=== PATIENT | female | born 1975 | race Caucasian/White ===

== ENCOUNTER → 2016-06-26 | Outpatient (CLI) | payer OTHER | LOC: FIMAGING 10:15 | PROVIDERS: ATTEND Advanced Practice Midwife | DX: O09.522 Supervision of elderly multigravida, second trimester (principal); O28.8 Other abnormal findings on antenatal screening of mother; Z3A.17 17 weeks gestation of pregnancy ==

== ENCOUNTER 2016-11-07 17:55 | Observation (INO) | payer OTHER ==
[2016-11-07 18:53] LABS: % IMMATURE GRANULYOCYTES 0.4 % (0.0-1.1); ABSOLUTE IMMATURE GRANULOCYTES 0.05 10^3/uL (0.00-0.10); ADD DIFF? NO; ADD MORPH? NO; ADD SCAN? NO; ATYPICAL LYMPHOCYTE FLAG 0 (0-99); FRAGMENT RBC FLAG 0 (0-99); HEMATOCRIT 44.3 % (38.0-47.0); HEMOGLOBIN 15.3 g/dL (12.6-16.3); LEFT SHIFT FLG 0 (0-99); LIPEMIA HEMOLYSIS FLAG 90 (0-99); MEAN CELL HEMOGLOBIN CONCENTR. 34.5 g/dL (32.4-36.7); MEAN CELL VOLUME 98.4 fL (81.5-99.8); MEAN PLATELET VOLUME 10.6 fL (8.7-11.7); PLATELET CLUMPS FLAG 0 (0-99); PLATELET COUNT 277 10^3/uL (150-400); RED CELL DISTRIBUTION WIDTH 13.4 % (11.5-15.2)
[2016-11-07 19:11] LABS: ALANINE AMINOTRANSFERASE 41 IU/L (9-52); ASPARTATE AMINOTRANSFERASE 26 IU/L (14-46); BILIRUBIN,TOTAL 0.3 mg/dL (0.1-1.4); BILIRUBIN-CONJUGATED 0.1 mg/dL (0.0-0.5); BILIRUBIN-UNCONJUGATED 0.2 mg/dL (0.0-1.1); CREATININE 0.6 mg/dL (0.6-1.0); GLOMERULAR FILTRATION RATE > 60; LACTATE DEHYDROGENASE 580 IU/L (313-618); URIC ACID 4.9 mg/dL (2.5-6.8)
[2016-11-07] MEDS ORDERED: ACETAMINOPHEN 325 MG TAB PO PRN (20:07)
[2016-11-07] MEDS: D5W LR 1,000 ML IV SCH (20:20)
[2016-11-07] MEDS: ZOLPIDEM TARTRATE 5 MG TAB PO PRN (23:37)
--- NOTE | 2016-11-07 23:58 | PDGENHP ---
History and Physical History and Physical: LABOR ADMISSION HISTORY AND PHYSICAL EXAM DATE OF ADMISSION: 11/07/2016 HISTORY OF PRESENT ILLNESS: 41 yo @ 36.5 weeks gestation (EDC = by 1st trimester scan) with complicated by mild preeclampsia presents with complaints of headache. She was seen earlier today by Dr. Vianca Polo. She denies vision changes, right upper quadrant pain. Prior CD for breech. MEDICAL HISTORY: non-contrib, chart not available CURRENT MEDICATIONS: PNV SURGICAL HISTORY: CD for breech P2 ALLERGIES:NKDA SOCIAL HISTORY: non-contrib FAMILY MEDICAL HISTORY: non-contrib OBSTETRICAL/GYNECOLOGIC HISTORY: see HPI REVIEW OF SYSTEMS: GENERAL: Denies generalized faintness or fatigue HENT: Denies headache, vision changes, sore throat PULM: Denies cough, shortness of breath CV: Denies palpitations, chest pain GI: Denies nausea, vomiting, diarrhea, constipation : Denies dysuria, vaginal bleeding, vaginal discharge, movement MSK: Denies significant swelling in extremities SKIN: Denies rash, or new lesion NEURO: Admits to headache PSYCH: Denies significant mood changes PHYSICAL EXAM: VITALS: initial BPs elevated 170/100, repeats 150/90 GENERAL APPEARANCE: Alert & oriented x 3 HENT: Normocephalic, atraumatic, supple HEART: RRR, no M/R/G LUNGS: CTAB, no wheezes, no rhonchi ABDOMEN: Gravid, non-distended, non-tender ASSESSMENT: Category 1 tracing, baseline 135 LABS: pending chart search ASSESSMENT: 41 yo @ 36.5 weeks with mild preeclampsia, with some concerning symptoms. PLAN: Teresa will be admitted for observation overnight. Serial BPs, PIH labs , monitoring of symptoms will be performed. Plan is for repeat CD at 37 weeks, earlier if severe preeclampsia is diagnosed.
[2016-11-08] MEDS: D5W LR 1,000 ML IV SCH (04:07)
[2016-11-08 06:45] LABS: % IMMATURE GRANULYOCYTES 0.4 % (0.0-1.1); ABSOLUTE IMMATURE GRANULOCYTES 0.04 10^3/uL (0.00-0.10); ADD DIFF? NO; ADD MORPH? NO; ADD SCAN? NO; ATYPICAL LYMPHOCYTE FLAG 10 (0-99); FRAGMENT RBC FLAG 0 (0-99); HEMOGLOBIN 13.4 g/dL (12.6-16.3); LEFT SHIFT FLG 0 (0-99); LIPEMIA HEMOLYSIS FLAG 90 (0-99); MEAN CELL HEMOGLOBIN 34.1 pg (27.9-34.1); MEAN CELL HEMOGLOBIN CONCENTR. 34.4 g/dL (32.4-36.7); MEAN CELL VOLUME 99.2 fL (81.5-99.8); MEAN PLATELET VOLUME 10.6 fL (8.7-11.7); PLATELET CLUMPS FLAG 10 (0-99); PLATELET COUNT 239 10^3/uL (150-400); RED BLOOD CELL COUNT 3.93 10^6/uL (4.18-5.33); RED CELL DISTRIBUTION WIDTH 13.3 % (11.5-15.2)
[2016-11-08 06:47] LABS: ALANINE AMINOTRANSFERASE 31 IU/L (9-52); ASPARTATE AMINOTRANSFERASE 18 IU/L (14-46); BILIRUBIN,TOTAL 0.3 mg/dL (0.1-1.4); BILIRUBIN-CONJUGATED 0.1 mg/dL (0.0-0.5); BILIRUBIN-UNCONJUGATED 0.2 mg/dL (0.0-1.1); CREATININE 0.6 mg/dL (0.6-1.0); GLOMERULAR FILTRATION RATE > 60; LACTATE DEHYDROGENASE 395 IU/L (313-618); URIC ACID 5.2 mg/dL (2.5-6.8)
--- NOTE | 2016-11-08 07:34 | SOAPPROG ---
SOAP Progress Note Assessment/Plan: Assessment: 41 yo @ 36.6 weeks gestation with c/b preeclampsia and prior delivery. Plan: 11/08/16 07:29 Continued observation in hospital Collection of 24 hour urine for protein quantification Plan for delivery by RCDarius @ 37+ weeks Subjective: Teresa reports good sleep overnight. She states that headache went away. She denies any vision changes or RUQ pain. She reports good movement and denies any contractions. She would like to eat if possible. Objective: Laboratory Results 11/08/16 06:15 11/08/16 06:15 Normotensive this AM NAD, AAOx3 Normocephalic Atraumatic CTAB RRR Abdomen soft, non-tender, gravid No pitting edema in extremities ICD10 Worksheet Patient Problems: Problems Problem Status Onset SAB (spontaneous ) Acute
[2016-11-08] MEDS: ZOLPIDEM TARTRATE 5 MG TAB PO PRN (22:30)
[2016-11-08 23:22] LABS: RANDOM URINE PROTEIN 13 mg/dL (0-11)
[2016-11-09 02:13] LABS: 24 HOUR URINE PROTEIN 803 mg/24HR (42-225); URINE VOLUME 6175 mL
[2016-11-09 07:09] LABS: % IMMATURE GRANULYOCYTES 0.4 % (0.0-1.1); ABSOLUTE IMMATURE GRANULOCYTES 0.04 10^3/uL (0.00-0.10); ADD DIFF? NO; ADD MORPH? NO; ADD SCAN? NO; ATYPICAL LYMPHOCYTE FLAG 0 (0-99); FRAGMENT RBC FLAG 0 (0-99); HEMATOCRIT 40.1 % (38.0-47.0); HEMOGLOBIN 13.6 g/dL (12.6-16.3); LEFT SHIFT FLG 0 (0-99); LIPEMIA HEMOLYSIS FLAG 90 (0-99); MEAN CELL HEMOGLOBIN 34.2 pg (27.9-34.1); MEAN CELL HEMOGLOBIN CONCENTR. 33.9 g/dL (32.4-36.7); MEAN CELL VOLUME 100.8 fL (81.5-99.8); MEAN PLATELET VOLUME 10.4 fL (8.7-11.7); PLATELET CLUMPS FLAG 0 (0-99); PLATELET COUNT 257 10^3/uL (150-400); RED BLOOD CELL COUNT 3.98 10^6/uL (4.18-5.33); RED CELL DISTRIBUTION WIDTH 13.6 % (11.5-15.2)
[2016-11-09 07:43] LABS: ALANINE AMINOTRANSFERASE 35 IU/L (9-52); ASPARTATE AMINOTRANSFERASE 20 IU/L (14-46); BILIRUBIN,TOTAL 0.4 mg/dL (0.1-1.4); BILIRUBIN-CONJUGATED 0.2 mg/dL (0.0-0.5); BILIRUBIN-UNCONJUGATED 0.2 mg/dL (0.0-1.1); CREATININE 0.7 mg/dL (0.6-1.0); GLOMERULAR FILTRATION RATE > 60; LACTATE DEHYDROGENASE 458 IU/L (313-618); URIC ACID 5.1 mg/dL (2.5-6.8)
[2016-11-09] MEDS ORDERED: FLU VACC QS 2017-18 (3YR+)/PF 0.5 ML SYR (FLUARIX QUAD) IM ONE (09:53)
--- NOTE | 2016-11-09 10:05 | SOAPPROG ---
SOAP Progress Note Assessment/Plan: Assessment: 41 yo @ 36.6 weeks gestation with c/b preeclampsia and prior delivery. Plan: 11/08/16 07:29 Continued observation in hospital Collection of 24 hour urine for protein quantification Plan for delivery by RCDarius @ 37+ weeks 11/09/16 09:58 A/P: 41 yo @ 37.0 weeks with c/b gestational hypertension/ preeclampsia and h/o prior delivery. After over 24 hours of monitoring serial BPs, PIH labs, 24 hour urine collection for protein quantification, closely monitoring symptoms, patient has remained stable and has not made significant changes or suddenly developed severe features. After discussion with patient regarding options for management moving forward, we have agreed to continue with Dr. Polo's plan of repeat delivery on the AM of November 11 (in less than 48 hours). Patient will be discharged home this morning. She has been given strict instructions and precautions regarding closely monitoring development of severe preeclamptic features at home. She has been instructed to rest, stay hydrated and use Tylenol for mild headaches that she often experiences in the afternoons. She understands to return to hospital or call clinic if she develops severe headache, RUQ pain, suddenly notes increased swelling, or elevated BPs at home. Subjective: Teresa feels good this morning. She denies complaints of headache, vision changes, right upper quadrant pain or significant changes in swelling in extremities. She reports good movement. She is in good spirits. Objective: Laboratory Results 11/09/16 06:30 11/09/16 06:30 NAD CTAB, no wheezes, crackles RRR, no murmurs Soft, non-tender abdomen, gravid, S=D Extremities: no excessive edema, normal DTRs Labs: 24 hr urine = 800; other PIH labs WNL - Pending Discharge Pending Discharge Within 24 Hours: Yes Pending Discharge Date: 11/10/16 Pending Discharge Time: 11:00 ICD10 Worksheet Patient Problems: Problems Problem Status Onset SAB (spontaneous ) Acute
--- NOTE | 2016-11-09 10:25 | PDDCSUM ---
Discharge Summary Discharge Summary: ANTEPARTUM DISCHARGE SUMMARY DATE OF ADMISSION: 11/07/2016 DATE OF DISCHARGE: 11/09/2016 ADMITTING DIAGNOSES: 1.IUP @ 36.5 week gestation 2.Gestational hypertensive disorder / Preeclampsia without severe features 3.Headache DISCHARGE DIAGNOSES: 1.IUP @ 36.5 week gestation 2.Gestational hypertensive disorder / Preeclampsia without severe features ADMITTING PHYSICIAN: Zack Huizar MD DISCHARGING PHYSICIAN: Zack Huizar MD HISTORY OF PRESENT ILLNESS/HOSPITAL COURSE: 41 yo @ presented on Thursday evening (11/07) with c/o throbbing headache. Elevated BPs noted at admission. Her care has primarily been with Dr. Vianca Polo at [facility] and she was previously diagnosed and followed for gestational hypertension/ preeclampsia and h/o prior delivery. After over 24 hours of monitoring serial BPs, PIH labs, 24 hour urine collection for protein quantification, closely monitoring symptoms, patient has remained stable and has not made significant changes or suddenly developed severe features. After discussion with patient regarding options for management moving forward, we have agreed to continue with Dr. Polo's plan of repeat delivery on the AM of November 11 (in less than 48 hours). Patient will be discharged home this morning. She has been given strict instructions and precautions regarding closely monitoring development of severe preeclamptic features at home. She has been instructed to rest, stay hydrated and use Tylenol for mild headaches that she often experiences in the afternoons. She understands to return to hospital or call clinic if she develops severe headache, RUQ pain, suddenly notes increased swelling, or elevated BPs at home. PROCEDURES PERFORMED: 1. NST q shift 2. Serial BP monitoring 3. Serial PIH labs 4. 24 hour urine collection for protein quantification. 5. Flu vaccine administered. COMPLICATIONS:None. DISCHARGE INSTRUCTIONS AND FOLLOW-UP: Discharge home. Follow-up for scheduled repeat delivery on November 11 (less than 48 hours from now) at [facility]. Precautions for severe preeclampsia feature and labor discussed. DIET: Regular. ACTIVITY: Recommended modified bed rest and avoid triggers for headache. MEDICATIONS: vitamins
== END 2016-11-09 11:00 | disposition home or self-care (01) ==
LOC: FLD 17:55
PROVIDERS: ADMIT Obstetrics & Gynecology Gynecology; ATTEND Obstetrics & Gynecology Gynecology
DX: O14.03 Mild to moderate pre-eclampsia, third trimester (principal); O34.211 Maternal care for low transverse scar from previous cesarean delivery; O09.523 Supervision of elderly multigravida, third trimester; Z3A.37 37 weeks gestation of pregnancy; Z23 Encounter for immunization
CPT/HCPCS: 59025; G0378

== ENCOUNTER 2016-11-11 05:37 | Inpatient (IN) | payer OTHER ==
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
[2016-11-11] MEDS ORDERED: CITRIC ACID/SODIUM CITRATE 30 ML UDCUP PO ONE (05:49)
[2016-11-11] MEDS ORDERED: ceFAZolin 2 GM/DEXTROSE 100 ML IV ONE (05:49)
[2016-11-11] MEDS ORDERED: LR 500 ML IV ONE (05:49)
[2016-11-11] MEDS ORDERED: LR 1,000 ML IV SCH (06:00)
[2016-11-11] MEDS ORDERED: AMMONIA AROMATIC 1 EACH AMP IH ONE (06:26)
[2016-11-11] MEDS ORDERED: MISOPROSTOL 200 MCG TAB ONE (06:27)
[2016-11-11] MEDS ORDERED: OXYTOCIN 10 UNIT/ML VIAL ONE (06:27)
[2016-11-11 06:59] LABS: % IMMATURE GRANULYOCYTES 0.3 % (0.0-1.1); ABSOLUTE IMMATURE GRANULOCYTES 0.03 10^3/uL (0.00-0.10); ADD DIFF? NO; ADD MORPH? NO; ADD SCAN? NO; ATYPICAL LYMPHOCYTE FLAG 0 (0-99); FRAGMENT RBC FLAG 0 (0-99); HEMATOCRIT 41.2 % (38.0-47.0); HEMOGLOBIN 14.4 g/dL (12.6-16.3); LEFT SHIFT FLG 0 (0-99); LIPEMIA HEMOLYSIS FLAG 90 (0-99); MEAN CELL HEMOGLOBIN 34.2 pg (27.9-34.1); MEAN CELL VOLUME 97.9 fL (81.5-99.8); MEAN PLATELET VOLUME 10.2 fL (8.7-11.7); PLATELET CLUMPS FLAG 10 (0-99); PLATELET COUNT 280 10^3/uL (150-400); RED BLOOD CELL COUNT 4.21 10^6/uL (4.18-5.33); RED CELL DISTRIBUTION WIDTH 13.5 % (11.5-15.2)
[2016-11-11 07:43] LABS: ALANINE AMINOTRANSFERASE 34 IU/L (9-52); ASPARTATE AMINOTRANSFERASE 20 IU/L (14-46); BILIRUBIN,TOTAL 0.3 mg/dL (0.1-1.4); BILIRUBIN-CONJUGATED 0.1 mg/dL (0.0-0.5); BILIRUBIN-UNCONJUGATED 0.2 mg/dL (0.0-1.1); CREATININE 0.6 mg/dL (0.6-1.0); GLOMERULAR FILTRATION RATE > 60; LACTATE DEHYDROGENASE 490 IU/L (313-618); URIC ACID 5.3 mg/dL (2.5-6.8)
[2016-11-11] MEDS ORDERED: fentaNYL 100 MCG/2 ML INJ ONE (07:53)
--- NOTE | 2016-11-11 07:58 | PDHPUP ---
History & Physical Update H&P update statement: This history and physical update is based on an assessment of the patient which was completed after admission or registration (within 24 hours), but prior to the surgery/procedure. H&P update: H&P reviewed & patient examined H&P changes: was seen on labor and delivery three days ago for worsening headache. headache mostly resolved until last night. bp 140/103 this am. will proceed with RLTCS with bilateral salpingectomy followed by magnesium sulfate for 12 hours.
[2016-11-11] MEDS ORDERED: ONDANSETRON 4 MG/2 ML VIAL ONE ×2 (08:27→08:28)
[2016-11-11] MEDS ORDERED: DEXAMETHASONE 4 MG/ML VIAL ONE ×2 (08:27→08:28)
[2016-11-11] MEDS ORDERED: PHENYLEPHRINE HCL 100 MCG/ML SYR ONE (08:27)
[2016-11-11] MEDS ORDERED: OXYTOCIN 100 UNITS/10 ML VIAL ONE (08:27)
[2016-11-11] MEDS ORDERED: DOCUSATE SODIUM 100 MG CAP PO PRN (09:47)
[2016-11-11] MEDS ORDERED: LACTULOSE 20 GM/30 ML UDCUP PO PRN (09:47)
[2016-11-11] MEDS ORDERED: POLYETHYLENE GLYCOL 3350 17 GM PKT PO PRN (09:47)
[2016-11-11] MEDS ORDERED: BISACODYL 10 MG SUPP PR PRN (09:47)
[2016-11-11] MEDS ORDERED: MAGNESIUM HYDROXIDE 30 ML UDCUP PO PRN (09:47)
[2016-11-11] MEDS ORDERED: MAGNESIUM SULF 4 GM/WATER 100 ML IV ONE (09:47)
[2016-11-11] MEDS ORDERED: CALCIUM GLUC 10% 1 GM/10 ML VIAL IVP PRN (09:47)
--- NOTE | 2016-11-11 09:53 | OBDEL ---
Info Type: Repeat Presentation at Delivery: Vertex L&D Analgesia/Anesthesia Type: Spinal GBS+: No Intrapartum Medications: Discontinued Medications Generic Name Dose Route Start Last Admin Trade Name Cali PRN Reason Stop Dose Admin Citric Acid/Sodium Citrate 30 ml 11/11/16 05:49 11/11/16 07:45 Bicitra PO 11/11/16 05:50 Not Given ONCALL ONE Cefazolin Sodium/Dextrose 100 mls @ 200 mls/hr 11/11/16 05:49 11/11/16 07:46 Ancef 2 Gm (Premix) IV 11/11/16 06:18 100 mls ONCALL ONE Administration Protocol Lactated Ringer's 500 mls @ 0 mls/hr 11/11/16 05:49 11/11/16 06:30 Lr IV 11/11/16 05:50 500 mls ONCE ONE Administration As Directed Indications for Delivery: Preeclampsia Mild Operative Report - Delivery Pre-op Diagnoses: IUp 37 2/7 weeks, mild preeclampsia, family status complete, spontaneous reduction of twins to julien, marginal cord insertion Post-op Diagnoses: same and preop History of Prior Section: Yes Number of Prior Sections: 1 Nulliparous Prior to Delivery: No Indications for Prior Section: Breech Indications for Current Section: Elective/Repeat, Other (Specify) ( mild preeclampsia) Procedure: Scheduled, Low Transverse Surgeon: Vianca Polo Flag Signaler: Rufina Coombs Anesthesiologist: Shahirar Davies Complications: None Specimen(s)/Path: Placenta, Fallopian Tube(s) EBL: 1200 Minetto Data Julien Delivery Date: 11/11/16 Delivery Time: 08:33 TEDDY: 11/30/16 Gestational Age: 37 week(s) and 2 day(s) Sex of Infant: Female Score (1 Min): 8 Score (5 Min): 9 ICD10 Worksheet Patient Problems: Problems Problem Status Onset SAB (spontaneous ) Acute
[2016-11-11] MEDS ORDERED: Mag Sulf 500 ML IV SCH (10:00)
[2016-11-11] MEDS ORDERED: SCOPOLAMINE HYDROBROMIDE 1 MG/3 DAYS PATCH TD ONE ×2 (10:32→10:57)
--- NOTE | 2016-11-11 10:38 | PREANESOB ---
Obstetric Pre-Anesthesia Info - General Info Proposed Procedure: C Section and bilateral salpingectomy. : 5 Para: 2 WBD: 37 - Info Status: Full Term Monitors: External FHR Baseline (bpm): 145 FHR Pattern: Reassuring - Labor Status Section History: Repeat Indications for Current Section: Elective/Repeat (Preeclampsia with elevated blood pressure.), Other (Specify) (mild preeclampsia) Anesthesia ROS: Prior general anesthesia for abdominal surgery and spinal for C Section. Preeclampsia with elevated blood pressure during this . Allergies/Adverse Reactions: Allergy/AdvReac Type Severity Reaction Status Date / Time No Known Allergies Allergy Unverified 02/16/11 14:35 Home Medications: Medication Instructions Recorded 1 tab PO DAILY 11/07/16 VITAMIN D 1 tab PO DAILY 11/11/16 Visit Medications: Generic Name Dose Route Start Last Admin Trade Name Freq PRN Reason Stop Dose Admin Hydrocodone Bitart/Acetaminophen 1 - 2 tab 11/11/16 09:47 [place] 5/325 PO 11/21/16 09:46 Q4HRS PRN Pain, Moderate Bisacodyl 10 mg 11/11/16 09:47 Dulcolax Rectal GA 05/10/17 09:46 DAILY PRN Constipation Protocol Calcium Gluconate 1 gm 11/11/16 09:47 Calcium Gluconate IVP 05/10/17 09:46 PRN PRN Magnesium Toxicity Docusate Sodium 100 mg 11/11/16 09:47 Colace PO 05/10/17 09:46 BID PRN Constipation Lactated Ringer's 1,000 mls @ 125 mls/hr 11/11/16 06:00 Lr IV 05/10/17 05:59 CONT ASHWIN Magnesium Sulfate 500 mls @ 25 mls/hr 11/11/16 10:00 Magnesium Sulfate 20 Gm/ 500 Ml (Premix) IV 05/10/17 09:59 CONT ASHWIN Ibuprofen 600 mg 11/11/16 09:47 Motrin PO 05/10/17 09:46 Q6HRS PRN Inflammation Ketorolac Tromethamine 30 mg 11/11/16 12:00 Toradol IVP 11/12/16 06:01 Q6HRS ASHWIN Lactulose 20 gm 11/11/16 09:47 Cephulac PO 05/10/17 09:46 TID PRN Constipation Protocol Magnesium Hydroxide 30 ml 11/11/16 09:47 Milk Of Magnesia PO 05/10/17 09:46 DAILY PRN Constipation Protocol Polyethylene Glycol 17 gm 11/11/16 09:47 Miralax PO 05/10/17 09:46 DAILY PRN Constipation, patient prefers Protocol Senna/Docusate Sodium 1 - 2 tab 11/11/16 21:00 Senokot-S PO 05/10/17 20:59 BID ASHWIN Protocol Simethicone 80 mg 11/11/16 09:47 Mylicon PO 05/10/17 09:46 .TIDMEALS AND HS PRN Gas Discontinued Medications Generic Name Dose Route Start Last Admin Trade Name Freq PRN Reason Stop Dose Admin Ammonia (Aromatic Spirit) Confirm 11/11/16 06:26 Ammonia Aromatic Administered 11/11/16 06:27 Dose 1 each IH .STK-MED ONE Citric Acid/Sodium Citrate 30 ml 11/11/16 05:49 11/11/16 07:45 Bicitra PO 11/11/16 05:50 Not Given ONCALL ONE Dexamethasone Confirm 11/11/16 08:27 Decadron Injection Administered 11/11/16 08:28 Dose 4 mg .ROUTE .STK-MED ONE Dexamethasone Confirm 11/11/16 08:28 Decadron Injection Administered 11/11/16 08:29 Dose 4 mg .ROUTE .STK-MED ONE Fentanyl Confirm 11/11/16 07:53 Sublimaze Administered 11/11/16 07:54 Dose 100 mcg .ROUTE .STK-MED ONE Cefazolin Sodium/Dextrose 100 mls @ 200 mls/hr 11/11/16 05:49 11/11/16 07:46 Ancef 2 Gm (Premix) IV 11/11/16 06:18 100 mls ONCALL ONE Administration Protocol Lactated Ringer's 500 mls @ 0 mls/hr 11/11/16 05:49 11/11/16 06:30 Lr IV 11/11/16 05:50 500 mls ONCE ONE Administration As Directed Magnesium Sulfate 100 mls @ 200 mls/hr 11/11/16 09:47 Magnesium Sulf 4 Gm (Premix) IV 11/11/16 10:16 ONCE ONE Misoprostol Confirm 11/11/16 06:27 Cytotec Administered 11/11/16 06:28 Dose 1,000 mcg .ROUTE .STK-MED ONE Morphine Sulfate Confirm 11/11/16 07:51 Morphine Administered 11/11/16 07:52 Dose 2 mg .ROUTE .STK-MED ONE Ondansetron HCl Confirm 11/11/16 08:27 Zofran Administered 11/11/16 08:28 Dose 4 mg .ROUTE .STK-MED ONE Ondansetron HCl Confirm 11/11/16 08:28 Zofran Administered 11/11/16 08:29 Dose 4 mg .ROUTE .STK-MED ONE Oxytocin Confirm 11/11/16 06:27 Pitocin Administered 11/11/16 06:28 Dose 30 unit .ROUTE .STK-MED ONE Oxytocin Confirm 11/11/16 08:27 Pitocin Administered 11/11/16 08:28 Dose 100 units .ROUTE .STK-MED ONE Phenylephrine HCl Confirm 11/11/16 08:27 Neosynephrine Administered 11/11/16 08:28 Dose 1,000 mcg .ROUTE .STK-MED ONE - Anesthesia History Response to Local Anesthetics: Normal Anesthesia & Operative History: No Prior Problems Family Anesthesia History: Negative - Social History Substance Use/Abuse: Denies - Focused Exam Blood Pressure: 142/103 Heart Rate: 82 Respiratory Rate: 20 Height/Weight (Nursing): Height 167.64 cm Weight 86.183 kg Airway: No abnormalities, class 1 Physical Exam: Within normal limits. Respiratory: lungs clear Cardiovascular: regular rate, rhythm ASA Status: II Labs: 11/11/16 06:22 11/11/16 06:22 Patient ABO/Rh O POSITIVE 11/11/16 06:22 Uric Acid 5.3 mg/dL (2.5-6.8) 11/11/16 06:22 Total Bilirubin 0.3 mg/dL (0.1-1.4) 11/11/16 06:22 Conjugated Bilirubin 0.1 mg/dL (0.0-0.5) 11/11/16 06:22 Unconjugated Bilirubin 0.2 mg/dL (0.0-1.1) 11/11/16 06:22 AST 20 IU/L (14-46) 11/11/16 06:22 ALT 34 IU/L (9-52) 11/11/16 06:22 Lactate Dehydrogenase 490 IU/L (313-618) 11/11/16 06:22 - Plan Anesthetic Plan: SAB Consent Signed and on Chart: Yes Patient/Guardian Understands and Agrees to Plan: Yes General Comments: Anesthesia evalution done but entered into computer after procedure in [place]
--- NOTE | 2016-11-11 10:54 | POSTANESTH ---
Post Anesthetic Evaluation Cardiovascular Status: Normal, Stable Respiratory Status: Normal, Stable Level of Consciousness/Mental Status: Can Participate in Eval Pain Control: Adequate, Prn Tx Ordered Nausea/Vomiting Control: Adequate, Prn Tx Ordered Complications Possibly Related to Anesthesia: None Noted (Some dizziness and nausea treated with scopolamine patch.)
[2016-11-11] MEDS ORDERED: PHENYLEPHRINE HCL 100 MCG/ML SYR IVP PRN (10:55)
[2016-11-11] MEDS ORDERED: NALOXONE HCL 0.4 MG/ML INJ IVP PRN (10:55)
[2016-11-11] MEDS ORDERED: ONDANSETRON 4 MG/2 ML VIAL IVP PRN (10:55)
[2016-11-11] MEDS: KETOROLAC 30 MG/1 ML SDV IVP SCH ×2 (12:28→18:31)
--- NOTE | 2016-11-11 17:24 | OBPP ---
Progress Note Assessment/Plan: Assessment: POD# 0 S/P rltcs with bilateral salpingectomy mild preeclampsia on magnesium sulfate breast feeding Plan: continue magnesium sulfate until am routine post operative and post care 11/11/16 17:22 Subjective/ Course: 11/11/16 17:23 patient is doing great! pain is well controlled. normal lochia. denies headache and changes in vision. blood pressure still elevated but headache resolved. tolerating magnesium sulfate. breast feeding is going well. Objective: 11/11/16 06:22 11/11/16 06:22 Patient ABO/Rh O POSITIVE 11/11/16 06:22 Uric Acid 5.3 mg/dL (2.5-6.8) 11/11/16 06:22 Total Bilirubin 0.3 mg/dL (0.1-1.4) 11/11/16 06:22 Conjugated Bilirubin 0.1 mg/dL (0.0-0.5) 11/11/16 06:22 Unconjugated Bilirubin 0.2 mg/dL (0.0-1.1) 11/11/16 06:22 AST 20 IU/L (14-46) 11/11/16 06:22 ALT 34 IU/L (9-52) 11/11/16 06:22 Lactate Dehydrogenase 490 IU/L (313-618) 11/11/16 06:22 Temp Pulse Resp BP Pulse Ox 82 20 142/103 H 11/11/16 10:52 11/11/16 10:52 11/11/16 10:52 Physical Exam - Physical Exam Neck: non-tender, full range of motion, supple Respiratory: chest non-tender, lungs clear, normal breath sounds Cardiac/Chest: normal peripheral pulses, regular rate, rhythm Abdomen: normal bowel sounds, hypoactive bowel sounds Extremities: normal range of motion, non-tender, normal inspection, normal capillary refill Skin: normal color, warm/dry Neuro/Psych: no motor/sensory deficits, alert, normal mood/affect, oriented x 3
[2016-11-11] MEDS: SIMETHICONE 80 MG TAB CHEW PO PRN (20:05)
[2016-11-11] MEDS: SENNOSIDES/DOCUSATE SODIUM TAB PO SCH (22:41)
[2016-11-12] MEDS: KETOROLAC 30 MG/1 ML SDV IVP SCH ×2 (00:51→06:50)
[2016-11-12] MEDS: SIMETHICONE 80 MG TAB CHEW PO PRN (00:52)
--- NOTE | 2016-11-12 05:28 | GOP ---
[f rep st] OPERATIVE REPORT DATE OF OPERATION: 11/11/2016 SURGEON: Vianca Polo DO STOCK MIXER: Rufina Coombs CNM ANESTHESIA: Spinal with morphine. ANESTHESIOLOGIST: Shahriar Davies MD PREOPERATIVE DIAGNOSIS: 1. Intrauterine at 37-2/7 weeks gestation. 2. Mild preeclampsia. 3. History of previous section with J'ed incision. 4. Marginal cord insertion. 5. Family status is complete. 6. Twin , which spontaneously reduced to julien. POSTOPERATIVE DIAGNOSIS: 1. Intrauterine at 37-2/7 weeks gestation. 2. Mild preeclampsia. 3. History of previous section with J'ed incision. 4. Marginal cord insertion. 5. Family status is complete. PROCEDURE PERFORMED: Repeat low-transverse section with bilateral salpingectomy. FINDINGS: 1. Viable female infant in cephalic presentation, delivered at 8:33 a.m. Apgars were 8 and 9. 2. Intact placenta with three-vessel cord with separate placental disk from spontaneous reduction of twin . Cord blood collected for personal storage and cord blood sent. Normal ovaries uterus and tubes. ESTIMATED BLOOD LOSS: 1200 cc. INDICATIONS: Patient is a 41-year-old 3, para 2-0-1-2 who has a history of a previous low-transverse section which required a J excision for a breech presentation. The patient was diagnosed with preeclampsia at 35 weeks gestation. She has been followed with serial labs and nonstress tests. She has had intermittent elevated blood pressures and 24 hour urine protein over 600 mg. The patient has a history of a previous section and is not a candidate for vaginal after section, who presents for a repeat low-transverse section and bilateral salpingectomy. Risks and benefits have been reviewed with the patient. Patient has been properly consented. DESCRIPTION OF PROCEDURE: Patient was taken to the operating room with intravenous fluids in place. She was then placed seated on the operating room table where spinal anesthesia was obtained. She was then repositioned into the dorsal supine position with a leftward tilt and prepped and draped in the normal sterile fashion. A Gramajo catheter was placed. Venodynes were placed on her lower extremities. Anesthesia was assessed and found to be adequate. A Pfannenstiel skin incision was then made 2 fingerbreadths above the pubic symphysis. The previous -section scar which had slightly keloided was excised. The incision was then carried through the underlying layer of fascia with the Bovie. The fascia was then nicked in the midline and the fascial incision was extended laterally. The superior aspect of the fascial incision was then grasped with Cleo's, tented up and the underlying rectus muscle dissected off bluntly and with the Bovie. Attention was then turned to the inferior aspect of the fascial incision, which in a similar fashion was grasped with Cleo's, tented up and the underlying rectus muscle dissected off bluntly with the Bovie. The rectus muscle was then in the midline. The peritoneum was then identified, tented up, and entered sharply with the Metzenbaum scissors. The incision was extended superiorly and inferiorly with excellent visualization of the bladder. The bladder blade was then inserted. The vesicouterine peritoneum was then identified, tented up, and entered sharply with the Metzenbaum scissors. The incision was extended laterally and the bladder flap was created digitally. The lower uterine segment was noted to be thin. The uterus was then incised in a low-transverse fashion with the scalpel. The uterine incision was extended laterally. Clear fluid was noted. The viable female was then delivered through the incision. Delayed cord clamping x1 minute was performed. Cord was clamped x2 and cut and the infant handed off to awaiting nurse practitioner. Cord blood for storage was collected and cord blood for the hospital was then collected and a segment of the fallopian tube was collected. Intact placenta with 3-vessel cord delivered without difficulty. A second small portion of placenta was noted in the lower uterine segment. It is assumed that this was associated with the spontaneous reduction of a twin to a julien and this was the twins placenta. The uterus was then exteriorized and cleared of all clots and debris and wrapped in a moist laparotomy sponge. 0 Vicryl stitch was used to close the uterine incision. A second 0 Vicryl stitch was used to imbricate the uterine incision. Hemostasis was assured. Right fallopian tube was then grasped with a [place] and gently tented up. A defect was made in the avascular area of the mesosalpinx and the vessels in the mesosalpinx were doubly suture ligated and a salpingectomy was performed. The salpingectomy was performed on the contralateral side in a similar fashion. A small hematoma was noted on the cornual region of the uterus and it was suture ligated and no longer expanding after several running locked 0 Vicryl stitches were achieved. The uterus and tubes were unremarkable and remained hemostatic. Abdomen was then cleared of all clots. The uterus was then returned to the patient's abdomen and the gutters were cleared of all clots and debris. The bilateral salpingectomy sites were evaluated and found to be hemostatic and the hematoma was noted to still be hemostatic. Hysterotomy remained hemostatic. Peritoneum was reapproximated with 3-0 Vicryl in a running fashion. Rectus muscles were reapproximated with 2-0 Vicryl in a running fashion. Fascia was closed with 0 Vicryl in a running fashion. Ciara's tissue was reapproximated with 2-0 Vicryl in a running fashion. Subcuticular tissue was reapproximated with 3-0 Vicryl in a running fashion. The skin was then closed with estefany. Sponge, lap, and needle count were correct x2. Patient was transported to recovery room in stable condition. /[id number]/MODL MTDD
[2016-11-12] MEDS: SENNOSIDES/DOCUSATE SODIUM TAB PO SCH ×2 (07:40→20:30)
[2016-11-12] MEDS: HYDROCODONE/APAP 5/325 TAB PO PRN (07:47)
--- NOTE | 2016-11-12 09:51 | OBPP ---
Progress Note Assessment/Plan: Assessment: POD# 1 S/P rltcs with bilateral salpingectomy mild preeclampsia on magnesium sulfate breast feeding anemia Plan: dc magnesium sulfateroutine post operative and post care iron 11/12/16 09:50 Subjective/ Course: 11/11/16 17:23 patient is doing great! pain is well controlled. normal lochia. denies headache and changes in vision. blood pressure still elevated but headache resolved. tolerating magnesium sulfate. breast feeding is going well. Objective: 11/12/16 06:45 11/11/16 06:22 Patient ABO/Rh O POSITIVE 11/11/16 06:22 Uric Acid 5.3 mg/dL (2.5-6.8) 11/11/16 06:22 Total Bilirubin 0.3 mg/dL (0.1-1.4) 11/11/16 06:22 Conjugated Bilirubin 0.1 mg/dL (0.0-0.5) 11/11/16 06:22 Unconjugated Bilirubin 0.2 mg/dL (0.0-1.1) 11/11/16 06:22 AST 20 IU/L (14-46) 11/11/16 06:22 ALT 34 IU/L (9-52) 11/11/16 06:22 Lactate Dehydrogenase 490 IU/L (313-618) 11/11/16 06:22 Temp Pulse Resp BP Pulse Ox 82 20 142/103 H 11/11/16 10:52 11/11/16 10:52 11/11/16 10:52 Uterine Position/Fundal Height: Umbilicus -2 Uterine Tone: Firm Physical Exam - Physical Exam Neck: non-tender, full range of motion, supple Respiratory: chest non-tender, lungs clear, normal breath sounds Cardiac/Chest: normal peripheral pulses, regular rate, rhythm Abdomen: normal bowel sounds, non-tender, other (fundus firm and non tender) Extremities: normal range of motion, non-tender, normal inspection, normal capillary refill Skin: normal color, warm/dry, other (incision clean dry and intact) Neuro/Psych: no motor/sensory deficits, alert, normal mood/affect, oriented x 3
[2016-11-12] MEDS ORDERED: PATCH REMOVAL 1 EA PATCH TD ONE (10:57)
[2016-11-12] MEDS: IBUPROFEN 600 MG TAB PO PRN ×2 (13:59→20:30)
[2016-11-12] MEDS: IRON POLYSAC/IRON HEME 28 MG TAB PO SCH (14:00)
[2016-11-12 20:40] VITALS: O2SAT 93
[2016-11-13] MEDS: IBUPROFEN 600 MG TAB PO PRN ×3 (02:57→20:15)
[2016-11-13] MEDS: HYDROCODONE/APAP 5/325 TAB PO PRN ×4 (02:57→15:40)
[2016-11-13] MEDS: IRON POLYSAC/IRON HEME 28 MG TAB PO SCH ×3 (04:34→20:15)
[2016-11-13] MEDS: SENNOSIDES/DOCUSATE SODIUM TAB PO SCH ×2 (08:53→20:15)
--- NOTE | 2016-11-13 13:55 | OBPP ---
Progress Note Assessment/Plan: Assessment: 41yo POD#2 anemia mild pre-eclampsia Plan: routine post op care cont iron plan d/c home tomorrow 11/13/16 13:54 11/13/16 13:55 Subjective/ Course: 11/11/16 17:23 patient is doing great! pain is well controlled. normal lochia. denies headache and changes in vision. blood pressure still elevated but headache resolved. tolerating magnesium sulfate. breast feeding is going well. 11/13/16 13:56 pt doing well, no complaints; denies any pain, heavy bleeding. she denies headache, visual changes, epigastric pain. going well. Objective: 11/12/16 06:45 11/11/16 06:22 Patient ABO/Rh O POSITIVE 11/11/16 06:22 Uric Acid 5.3 mg/dL (2.5-6.8) 11/11/16 06:22 Total Bilirubin 0.3 mg/dL (0.1-1.4) 11/11/16 06:22 Conjugated Bilirubin 0.1 mg/dL (0.0-0.5) 11/11/16 06:22 Unconjugated Bilirubin 0.2 mg/dL (0.0-1.1) 11/11/16 06:22 AST 20 IU/L (14-46) 11/11/16 06:22 ALT 34 IU/L (9-52) 11/11/16 06:22 Lactate Dehydrogenase 490 IU/L (313-618) 11/11/16 06:22 Temp Pulse Resp BP Pulse Ox 36.5 C 66 16 128/84 H 93 11/13/16 08:00 11/13/16 08:00 11/13/16 08:00 11/13/16 08:00 11/13/16 08:00 Uterine Position/Fundal Height: Umbilicus -1, Midline Uterine Tone: Firm Physical Exam - Physical Exam EENT: PERRL/EOMI Neck: full range of motion, supple Respiratory: chest non-tender, lungs clear, normal breath sounds Cardiac/Chest: regular rate, rhythm Abdomen: normal bowel sounds, non-tender, soft Skin: normal color, warm/dry Neuro/Psych: no motor/sensory deficits, alert, normal mood/affect, oriented x 3
[2016-11-14] MEDS: IBUPROFEN 600 MG TAB PO PRN ×3 (02:03→14:42)
[2016-11-14] MEDS: HYDROCODONE/APAP 5/325 TAB PO PRN ×2 (02:04→14:41)
[2016-11-14] MEDS: IRON POLYSAC/IRON HEME 28 MG TAB PO SCH (08:38)
[2016-11-14 08:58] VITALS: BP 133/86; PULSE 70; RESP 16; TEMP 98
[2016-11-14] MEDS: SENNOSIDES/DOCUSATE SODIUM TAB PO SCH (15:40)
--- NOTE | 2016-11-14 16:55 | OBPP ---
Progress Note Assessment/Plan: Assessment: POD 3 s/p RCS, BS anemia PIH - stable Plan: d/C home, iron BID, RTC 1 wk for b/p check 11/14/16 16:52 Subjective/ Course: 11/11/16 17:23 patient is doing great! pain is well controlled. normal lochia. denies headache and changes in vision. blood pressure still elevated but headache resolved. tolerating magnesium sulfate. breast feeding is going well. 11/13/16 13:56 pt doing well, no complaints; denies any pain, heavy bleeding. she denies headache, visual changes, epigastric pain. going well. 11/14/16 16:53 Pt doing well. BF great - milk has come in, pain controlled with ibu/norco. urinating fine. Bld is light. ready for d/c Objective: 11/12/16 06:45 11/11/16 06:22 Patient ABO/Rh O POSITIVE 11/11/16 06:22 Uric Acid 5.3 mg/dL (2.5-6.8) 11/11/16 06:22 Total Bilirubin 0.3 mg/dL (0.1-1.4) 11/11/16 06:22 Conjugated Bilirubin 0.1 mg/dL (0.0-0.5) 11/11/16 06:22 Unconjugated Bilirubin 0.2 mg/dL (0.0-1.1) 11/11/16 06:22 AST 20 IU/L (14-46) 11/11/16 06:22 ALT 34 IU/L (9-52) 11/11/16 06:22 Lactate Dehydrogenase 490 IU/L (313-618) 11/11/16 06:22 Temp Pulse Resp BP Pulse Ox 36.7 C 70 16 133/86 H 93 11/14/16 08:00 11/14/16 08:00 11/14/16 08:00 11/14/16 08:00 11/13/16 08:00 Uterine Position/Fundal Height: Umbilicus -1 Uterine Tone: Firm Physical Exam - Physical Exam Abdomen: non-tender, soft, other (FF at umb -1, ) Extremities: non-tender, pedal edema (minimal) Skin: warm/dry Neuro/Psych: alert, normal mood/affect
== END 2016-11-14 17:32 | disposition home or self-care (01) | DRG 766 ==
LOC: FLD 05:37 → FOB 11-12 08:34
PROVIDERS: ADMIT Obstetrics & Gynecology; ATTEND Obstetrics & Gynecology
PROC: 10D00Z1 Extraction of Products of Conception, Low, Open Approach (ICD-10-PCS; principal; 2016-11-11)
PROC: 0UT70ZZ Resection of Bilateral Fallopian Tubes, Open Approach (ICD-10-PCS; principal; 2016-11-11)
DX: O34.219 Maternal care for unspecified type scar from previous cesarean delivery (principal); Z37.0 Single live birth; Z3A.37 37 weeks gestation of pregnancy; O14.04 Mild to moderate pre-eclampsia, complicating childbirth
CPT/HCPCS: J0610; J0690; J1100; J1885; J2370; J2405; J2590; J3010; J3475